=== PATIENT | female | born 1960 | race Caucasian/White ===

== ENCOUNTER 2016-06-06 05:37 | Outpatient (CLI) | payer BC ==
[~2016-06-06] VITALS: Ht 160 cm; Wt 87.1 kg
[2016-06-06] MEDS ORDERED: TRAZ-28 PO (13:19)
[2016-06-06] MEDS ORDERED: MELO15TA39 PO (13:19)
[2016-06-06] MEDS ORDERED: TRAM50TA2 PO (13:19)
[2016-06-06] MEDS ORDERED: HYDR-3820 PO (13:19)
[2016-06-06] MEDS ORDERED: TIZA4CAP8 PO (13:19)
[2016-06-06] MEDS ORDERED: TOPI25TA10 PO (13:19)
[2016-06-06] MEDS ORDERED: CYCL5TAB PO (13:19)
[2016-06-06] MEDS ORDERED: AMIT50TA3 PO (13:19)
== END 2016-06-06 13:28 ==
LOC: PREOP 05:37
PROVIDERS: ATTEND Surgery
DX: Z01.818 Encounter for other preprocedural examination (principal); R19.4 Change in bowel habit; A04.8 Other specified bacterial intestinal infections

== ENCOUNTER 2016-06-08 11:48 | Day surgery (SDC) | payer BC, MEDICARE ==
[2016-06-08 11:30] VITALS: BP 118/89
[~2016-06-08 11:48] MED LIST: AMIT50TA3 PO; CYCL5TAB PO; HYDR-3820 PO; MELO15TA39 PO; TIZA4CAP8 PO; TOPI25TA10 PO; TRAM50TA2 PO; TRAZ-28 PO
--- OUTSIDE RECORDS SUMMARY | 2016-06-08 11:51 | XMS REPORT | Continuity of Care Document ---
Author Author [facility] Organization [facility] Address Unknown Phone Unavailable Support Name Relationship Address Phone PABLO MELGARPEDRO Fair DO Caregiver [address] [place], [place] [id number] Insurance Providers Payer Name Policy Number Subscriber Name Relationship [facility] [id number] Kenneth Foreman 17 Self / Same As Patient Advance Directives Directive Response Recorded Date/Time Advance Directives No 06/06/16 1:14pm Health Care Power of Coordinator Of Online Programs No 06/06/16 1:14pm Resuscitation Status Full Code 06/06/16 1:14pm Problems No problem information available. Medications Current Home Medications Medication Dose Units Route Directions Days/Qty Instructions Start Date Cyclobenzaprine Hcl 5 Mg 10 Mg Oral Bedtime 06/06/16 Topiramate 25 Mg 25 Mg Oral Bedtime 06/06/16 Amitriptyline Hcl 50 Mg 50 Mg Oral Bedtime 06/06/16 Meloxicam 15 Mg 15 Mg Oral Bedtime 06/06/16 Trazodone Hcl 50 Mg 50 Mg Oral Bedtime 06/06/16 Tramadol Hcl 50 Mg 100 Mg Oral Bedtime 06/06/16 Tizanidine Hcl 4 Mg 4 Mg Oral Bedtime 06/06/16 Hydrocodone/Acetaminophen 1 Each 1 Each Oral As Needed 06/06/16 Social History Social History Problem Response Recorded Date/Time Alcohol Use Rarely Uses 06/06/2016 1:14pm Recreational Drug Use No 06/06/2016 1:14pm Recent Foreign Travel No 06/06/2016 1:12pm Recent Infectious Disease Exposure No 06/06/2016 1:12pm Sexually Transmitted Disease No 06/06/2016 1:14pm HIV/AIDS No 06/06/2016 1:14pm Smoking Status Never a Smoker 06/06/2016 1:14pm Recent Hopitalizations No 06/06/2016 1:14pm Sexually Transmitted Disease No 06/06/2016 1:14pm Query Response Start Date Stop Date Smoking Status Never a Smoker Hospital Discharge Instructions No hospital discharge instructions. Plan of Care Discharge Date 06/06/16 1:28pm Prescriptions See Medication Section Functional Status No functional status results. Allergies, Adverse Reactions, Alerts No known allergies. Immunizations No immunization records. Vital Signs Acute Vital Signs Vital Response Date/Time Height (Feet) 5 feet 06/06/2016 1:12pm Height (Inches) 3.00 inches 06/06/2016 1:12pm Height (Calculated Centimeters) 160.606386 cm 06/06/2016 1:12pm Weight (Pounds) 192 pounds 06/06/2016 1:12pm Weight (Ounces) 0.0 oz 06/06/2016 1:12pm Weight (Calculated Grams) 49110.74 gm 06/06/2016 1:12pm Weight (Calculated Kilograms) 87.778132 kilograms 06/06/2016 1:12pm Calculated BMI 34.0 06/06/2016 1:12pm Results No known relevant diagnostic tests, laboratory data and/or discharge summary. Procedures No known history of procedures. Encounters Encounter Location Arrival/Admit Date Discharge/Depart Date Attending Provider Departed Clinic [facility] 06/06/16 5:37am 06/06/16 1: 28pm CARINE MELGAR DO
--- OUTSIDE RECORDS SUMMARY | 2016-06-08 11:53 | XMS REPORT | Continuity of Care Document ---
Author Author [facility] Organization [facility] Address Unknown Phone Unavailable Support Name Relationship Address Phone PABLO MELGARPEDRO Fair DO Caregiver [address] [place], [place] [id number] Insurance Providers Payer Name Policy Number Subscriber Name Relationship [facility] [id number] Kenneth Foreman 17 Self / Same As Patient Advance Directives Directive Response Recorded Date/Time Advance Directives No 06/06/16 1:14pm Health Care Power of Neon Installer No 06/06/16 1:14pm Resuscitation Status Full Code [...] 3.00 inches 06/06/2016 1:12pm Height (Calculated Centimeters) 160.505546 cm 06/06/2016 1:12pm Weight (Pounds) 192 pounds 06/06/2016 1:12pm Weight (Ounces) 0.0 oz 06/06/2016 1:12pm Weight (Calculated Grams) 06857.74 gm 06/06/2016 1:12pm Weight (Calculated Kilograms) 87.050794 kilograms 06/06/2016 1:12pm Calculated BMI 34.0 06/06/2016 1:12pm Results No known relevant diagnostic tests, laboratory data and/or discharge summary. Procedures No known history of procedures. Encounters Encounter Location Arrival/Admit Date Discharge/Depart Date Attending Provider Departed Clinic [facility] 06/06/16 5:37am 06/06/16 1: 28pm CARINE MELGAR DO
[2016-06-08] MEDS ORDERED: NS IV 1000 ML 1,000 ML ONE (12:05)
[2016-06-08] MEDS ORDERED: NS IV 1000 ML 1,000 ML IV STA (12:14)
[2016-06-08] MEDS ORDERED: PROPOFOL INJECTION 50 ML IV ONE (13:14)
--- NOTE | 2016-06-08 13:18 | Progress Note-Pre Operative ---
Pre-Operative Progress Note H&P Reviewed The H&P was reviewed, patient examined and no changes noted. Date H&P Reviewed: Jun 08, 2016 Time H&P Reviewed: 13:14 Pre-Operative Diagnosis: Gastritis, Change in bowel habits CARINE MELGAR DO Jun 08, 2016 13:18
[2016-06-08] MEDS ORDERED: proPOfol 200 MG/20 ML (DIPRIVAN) VIAL IV ONE (13:57)
--- NOTE | 2016-06-08 14:16 | Progress Note-Post Operative ---
Post-Operative Progess Note Sander Wooden Pencils none Pre-Operative Diagnosis Gastritis, Change in bowel habits Post-Operative Diagnosis Gastritis Colon Polyps Int Hemorrhoids Post-Op Procedure Note Date of Procedure: Jun 08, 2016 Name of Procedure: EGD with Bx colon with snare Anesthesia Type Propofol by PRODUCTION LINE TECHNICIAN Estimated blood loss (mL): scant Specimen(s) collected Antral bx Colon polyps 2 Transverse colon, 2 descending colon CARINE MELGAR DO Jun 08, 2016 14:16
--- NOTE | 2016-06-08 14:20 | Endoscopy Discharge Instruct ---
Findings Findings 1.: Gastritis 2.: Polyp (4 in total), Internal Hemorrhoids Discharge Instructions - Activity: You might feel a little sleepy until tomorrow. This is due to the medicine you received to relax you. Until tomorrow, you should: NOT drive a car, operate machinery or power tools. NOT drink any alcoholic beverages. NOT make any important decisions or sign importortant papers. Do not return to work until tomorrow, unless otherwise instructed. Resume previous activities tomorrow. Diet: Start by taking liquids. If you tolerate liquids, advance to solid food. Instructions: 1.: Colonscopy in 5 years Notify Physician - If you experience excessive bleeding, unusual abdominal pain, fever, or chest pain, contact your doctor immediately. Phone number [phone] Follow-Up: Follow Up: Weeks - I have received and understand the above instructions and will call my doctor if I have any further questions. Patient Signature Date Nurse Signature Other (Relationship) CARINE MELGAR DO Jun 08, 2016 14:20
[2016-06-08 14:40] VITALS: BP 126/92
[2016-06-08 15:10] VITALS: BP 128/88
[2016-06-08 15:30] VITALS: BP 128/88
--- NOTE | 2016-06-10 23:51 | PROCEDURE REPORT ---
PROCEDURE PHYSICIAN: CARINE MELGAR DATE OF PROCEDURE: 06/08/2016 PREOPERATIVE DIAGNOSES: 1. Gastritis. 2. Possible small hiatal hernia. 3. Change in bowel habits. POSTOPERATIVE DIAGNOSES: 1. Gastritis. 2. Possible small hiatal hernia. 3. Colon polyps. 4. Internal hemorrhoids. PROCEDURES: 1. EGD with antral biopsy. 2. Colonoscopy snare polypectomy. SURGEON: Dr. Valdemar WALLS ASSIST: None. ANESTHESIA: IV sedation with propofol by the FOOD STAND MANAGER. BLOOD LOSS: Scant. FLUIDS: Minimal. SPECIMEN: 1. One biopsy from antrum, 2. Two colon polyps in the transverse colon and 1 colon polyp from the descending colon and 1 from the sigmoid. INDICATIONS FOR THE PROCEDURE: The patient is a 56-year-old female who having pain and heartburn, diagnosed with gastritis. She has also complained of some change in bowel habits and needs a work-up. FINDINGS: The patient had some gastritis. She also had what looked like a small hiatal hernia. She had a couple polyps in the colon and some internal hemorrhoids. PROCEDURE NOTE: After informed consent was obtained, the patient was brought to the endoscopy suite, placed in the bed in the left lateral decubitus position. She was administered IV sedation by the FOOD STAND MANAGER. Gastroscope was then inserted down the mouth, past the oropharynx into the esophagus and down into the stomach. In the stomach noted some redness and erythema, looked like gastritis. A picture was taken, biopsy done in the antrum, pushed into the first portion of the duodenum looked normal and then slowly withdrew the scope, retroflexed to look at the fundus and at the GE junction. It looked like there may be a small hiatal hernia. Then I slowly withdrew the scope, again saw what looked like a small hiatal hernia. No change in the Z line. Did not appear to be any Garcia's and then removed the scope. Then switched scopes and changed gloves and went to the other side and inserted the colonoscope. After first doing digital rectal exam, noted no mass or stricture. Inserted the scope, pushed all the way to about 120 cm and into the transverse colon saw 2 polyps, did a snare polypectomy of these and continued up further. Able to get all the way to the cecum, took a picture the appendiceal orifice and then able to get into the terminal ileum. Took a picture in the terminal ileum and then slowly withdrew the scope insufflating, looked circumferential as well as within the cecum, up the ascending colon to the hepatic flexure and then to the transverse colon, splenic flexure into the descending colon. Saw a small polyp here and did a snare polypectomy and then down a little bit further in the sigmoid colon, saw another polyp, did another snare polypectomy. Did not really see any diverticula, although maybe the beginnings of some outpouching. Continued withdrawing the scope down the sigmoid into the rectum, retroflexed in the rectal vault. Saw some minimal internal hemorrhoids, took a picture of this and then removed the scope. The patient tolerated the procedure well. She was transferred to recovery room in stable condition. Job ID: [id number] Dictated Date: 06/08/2016 14:25:25 Drawing Frame Tender Date: 06/10/2016 23:38:01 / balaji MICHAUD
== END 2016-06-08 15:40 | disposition home or self-care (01) ==
LOC: ENDO 11:48
PROVIDERS: ATTEND Surgery
DX: D12.3 Benign neoplasm of transverse colon (principal); D12.4 Benign neoplasm of descending colon; K63.5 Polyp of colon; K64.8 Other hemorrhoids; K29.70 Gastritis, unspecified, without bleeding
CPT/HCPCS: 88305